=== PATIENT | female | born 1970 | race Caucasian/White ===

== ENCOUNTER → 2017-01-22 | Outpatient (CLI) | payer OTHER ==
[~2017-01-22] MED LIST: ASCO500T16 PO; ATV1 PO; FERREX PO; GABA-112 PO; LRT5 PO
[2017-01-22 12:20] LABS: BASO % 0.4 %; BASO ABS # 0.02 K/uL (0-0.2); COMPLETE YES; EOS % 1.1 %; HEMATOCRIT 42.4 % (37-47); IG% 0.2 %; LYMPH % 38.3 %; LYMPH ABS # 2.18 K/uL (1.2-3.4); MEAN CELL VOLUME 91.2 fL (80-100); MEAN CORPUSCULAR HEMOGLOBIN 31.8 pg (25-34); MEAN CORPUSCULAR HGB CONC 34.9 g/dl (32-36); MEAN PLATELET VOLUME 11.4 fL (7.4-10.4); MONO % 8.3 %; NEUT % 51.7 %; PLATELET COUNT 206 K/uL (130-400); RED BLOOD COUNT 4.65 M/uL (4.2-5.4); WHITE BLOOD COUNT 5.69 K/uL (4.8-10.8)
[2017-01-22 12:49] LABS: BLOOD UREA NITROGEN 7 mg/dl (7-18); BUN/CREATININE RATIO 9.4 (10-20); CARBON DIOXIDE 27 mmol/L (21-32); CHLORIDE 110 mmol/L (98-107); CREATININE 0.74 mg/dl (0.60-1.20); GLUCOSE 85 mg/dl (70-99); POTASSIUM 3.8 mmol/L (3.5-5.1); SODIUM 143 mmol/L (136-145)
[2017-01-22 12:57] LABS: FERRITIN 28.3 ng/ml (8.0-388.0)
== END | disposition home or self-care (01) ==
LOC: C.LABPBG 09:25
PROVIDERS: ATTEND Family Medicine
DX: D50.9 Iron deficiency anemia, unspecified (principal)

== ENCOUNTER → 2017-01-23 | Outpatient (CLI) | payer OTHER ==
[2017-01-23 12:55] LABS: BENZODIAZEPINE, URINE NEG (NEG); COCAINE,URINE NEG (NEG); PHENCYCLIDINE, URINE NEG (NEG)
== END | disposition home or self-care (01) ==
LOC: C.LABPBG 09:11
PROVIDERS: ATTEND Family Medicine
DX: Z51.81 Encounter for therapeutic drug level monitoring (principal); Z79.899 Other long term (current) drug therapy

== ENCOUNTER → 2017-02-13 | Outpatient (CLI) | payer OTHER ==
--- NOTE | 2017-02-13 14:35 | MAMMOGRAPHY REPORT ---
BILATERAL DIGITAL DIAGNOSTIC MAMMOGRAM TOMOSYNTHESIS WITH CAD AND TARGETED LEFT ULTRASOUND: 7 CLINICAL HISTORY: 46-year-old woman with a personal history of right breast cancer diagnosed in 2015 status post breast conservation therapy. She presents for bilateral screening mammography and also late to follow-up a sonographic finding in the 10:00 left breast. Based on a previous outside ultr asound report, there was a possible intramammary lymph node solid-appearing mass the 10:[address], 2 cm from the nipple with circumscribed borders. A short interval follow-up was recommended in January 2016. TECHNIQUE: Bilateral breast tomosynthesis in addition to standard 2D mammography was performed. Spo t magnification right CC and ML views were also obtained over the surgical site in the right breast. Current study was also evaluated with a Computer Aided Detection (CAD) system. COMPARISON: Comparison is made to exams dated: 02/09/2016 mammogram, 02/09/2016 mammogram, and 015 mammogram - [facility]. BREAST COMPOSITION: The tissue of both breasts is heterogeneously dense, which may obscure small ma sses. FINDINGS: A linear scar marker overlies the 11:00 through 1:00 axes of the right breast, denoting t he area of prior surgery. There is expected architectural distortion in the superior right breast. No new suspicious mass, unexpected architectural distortion or new microcalcifications are seen in the right breast. There is a stable coiled metallic biopsy marker in the upper outer anterior left breast. The biopsi ed mass appears decreased in size based on the left CC view. There is a 13 x 11 mm mass in the appr oximate 9:00 to 10:00 posterior left breast with associated calcification. Indistinct and partially obscured borders. Further characterization with ultrasound was performed. No other obvious mass, focal area of architectural distortion or microcalcifications are seen in the left breast. Targeted ultrasound was performed in the left 10:00 breast to reevaluate the probably benign mass de scribed on prior ultrasound report, for which follow-up is recommended. Additional scanning was per formed throughout the medial left breast and in the 2:00 left breast in the area of previously biops ied mass. In the 9:30 left breast, 4 cm from the nipple, there is an ill-defined hypoechoic mass wi th indistinct borders measuring approximately 7.8 x 5.9 x 5.0 mm. This may possibly be under measur ed, as it appears larger mammographically. This is thought to correlate with the mammographic mass with associated calcification and is suspicious. A skin BB was placed in the left breast 9:30 axis o verlying the sonographic abnormality and repeat mammography was performed. The repeat left CC and M LO tomosynthesis images demonstrate mammographicsonographic correlation of this mass and definitive characterization with ultrasound guided core biopsy is recommended. Ultrasound was also performed in the 10:00 left breast. There is an ovoid parallel circumscribed be nign anechoic simple cyst with posterior acoustic enhancement measuring 7.0 x 3.4 x 9.6 mm. A lobul ated circumscribed isoechoic to hypoechoic solid-appearing mass is seen in the 10:00 left breast, 2 cm from the nipple adjacent to the cyst, measuring 4.7 x 4.1 x 5.4 mm. This has not significantly c hanged in size comparing to the prior ultrasound at which time it measured 7.0 x 5.7 x 4.1 mm. An o farzana parallel circumscribed hypoechoic solid-appearing mass in the 2:00 left breast, 2 cm from the ni pple measures 6.2 x 3.6 x 6.5 mm. IMPRESSION: ACR BI-RADS CATEGORY 4B: INTERMEDIATE SUSPICION FOR MALIGNANCY, TARGETED ULTRASOUND ACR BI-RADS CATEGORY 4B: INTERMEDIATE SUSPICION FOR MALIGNANCY 1. There is a lobulated approximately 11 mm mass, with indistinct borders and associated calcificat ion, in the 9:00 posterior left breast mammographically, thought to correlate with an ill-defined hy poechoic mass in the 9:30 left breast on ultrasound. Definitive characterization with an ultrasound -guided core needle biopsy is recommended. 2. There is an indeterminate solid circumscribed subcentimeter mass in the 10:00 left breast, 2 cm from the nipple that does not appear significantly changed compared to the prior ultrasound and may be benign. However, given the solid nature, and personal history of right breast cancer, definitive characterization with ultrasound guided core biopsy is recommended at the time of biopsy in the 9:3 0 left breast. 3. Stable mammographic appearance of the right breast, without mammographic evidence of malignancy. These results and recommendations were discussed with the patient at the time of the exam. She tent atively schedule the left breast biopsies prior to leaving our department. Approximately 10% of breast cancers are not detected with mammography. A negative mammographic repor t should not delay biopsy if a clinically suggestive mass is present. Digna Tejeda M.D. ay/:02/13/2017 10:55:00 Home Energy Rater: Argenis KRAFT(Liliana)([place]age), [facility] letter sent: Abnormal 4/5 BI-RADS Code: ACR BI-RADS Category 4B: Intermediate Suspicion For Malignancy Ultrasound BI-RADS: AC R BI-RADS Category 4B: Intermediate Suspicion For Malignancy
== END | disposition home or self-care (01) ==
LOC: C.MAMM 09:33
PROVIDERS: ATTEND Internal Medicine Hematology & Oncology
DX: N63 Unspecified lump in breast (principal); N64.89 Other specified disorders of breast

== ENCOUNTER → 2017-02-21 | Outpatient (CLI) | payer OTHER ==
--- NOTE | 2017-02-21 08:41 | Discharge Instructions ---
Discharge Instructions Procedure Procedure Date: February 21, 2017. Reason for visit: Left Masses. Discharge Discharge Date: February 21, 2017. Discharge Diagnosis: status post breast biopsy Instructions Activity Recommendations: Additional Limitations (see below) Return to School/Work: no limitations Recommended Home Diet: No Limitations Provider Instructions: ACTIVITY RECOMMENDATIONS: * No lifting, pushing, pulling or exercising the affected side for three days. RETURN TO SCHOOL/WORK: * You may return to work/school after the procedure, but do not perform any strenuous activities for 24 to 48 hours. MEDICATIONS: * Tylenol (two 325 mg) every four to six hours if needed for mild pain (if not allergic to Tylenol). DIET: * Resume previous diet. SPECIAL CARE INSTRUCTIONS: * Keep biopsy site dry for 24 hours. May shower after 24 hours, but do not soak (bathe) incision. * May remove Tegaderm (plastic patch) tomorrow AFTER showering. * Leave the steri-strips on for one week. Allow the steri-strips to fall off by themselves. If not off after one week, you may remove them. You may place a Bandaid crosswise over the strips, if desired. * Apply ice 10 minutes on and 10 minutes off as needed. * Wear a bra at bedtime to sleep more comfortably for 2-3 days. * Your referring physician should have the results after approximately 5 to 7 business days. * Call for unusual bleeding, fever, drainage, etc or if you have any questions call during normal business hours or after hours call Dr Ferrell, . FOLLOW UP VISIT: Follow-up with Referring Physician as scheduled. Allergies Coded Allergies: No Known Allergies (Verified Allergy, Unknown, 10/25/05) Lobito Martinez Recommendations: Call your doctor if: * Temperature above 101 degrees * Pain not relieved by pain medicine ordered * There is increased drainage or redness from any incision * You have any unanswered questions or concerns. Your Doctors Instructions noted above were prepared by provider Leatha Ferrell. Patient Signature Section: Patient Instructions Signature Page Kyle Ford Patient (or Guardian) Signature/Date: I have read and understand the instructions given to me by my caregivers. Caregiver/RN/Doctor Signature/Date: The above-named patient and/or guardian has received patient instructions on this date. + Original Patient Signature Page (only) stays with chart. Please make copy for patient.
--- NOTE | 2017-02-21 13:19 | MAMMOGRAPHY REPORT ---
ULTRASOUND GUIDED BIOPSY LEFT BREAST: 02/21/2017 CLINICAL HISTORY: Left 9:30 breast mass. PATIENT CONSENT: The procedure, risks and benefits were discussed with the patient and informed writ ten consent was obtained. A timeout was performed immediately prior to the procedure. PROCEDURE DESCRIPTION: With ultrasound guidance, aseptic technique, and lidocaine as the local anest hetic (1% lidocaine to anesthetize the skin and 1% lidocaine with epinephrine to anesthetize the oren per tissues), the mass of concern in the left 9:30 breast (labelled "A" was sampled 4 times with a 1 4-gauge Achieve biopsy needle. Immediately thereafter, with ultrasound guidance, aseptic technique, and lidocaine as the local anesthetic, a metallic localizer clip was placed centrally in the mass. Direct pressure was applied to the site immediately post procedure and hemostasis was achieved. Po stprocedure unilateral mammograms were performed to confirm placement of the clip in the expected lo cation of the breast mass. The patient tolerated the procedure without complication. She was given wound care instructions. The specimens were sent to pathology for analysis. COMPARISON: Comparison is made to exams dated: 02/13/2017 ultrasound, 02/13/2017 mammogram - [facility], 02/09/2016 mammogram, 02/09/2016 mammogram, and [facility]. IMPRESSION: ULTRASOUND GUIDED BIOPSY Ultrasound guided core needle biopsy of the left 9:30 breast mass, with clip placement. The patient will receive pathology results from her referring provider. Leatha Ferrell M.D. /:02/21/2017 08:44:34 Custom Wood Stair Builder: Argenis YADAV)(Sage), [facility]
--- NOTE | 2017-02-21 13:19 | MAMMOGRAPHY REPORT ---
ASPIRATION LEFT BREAST: 02/21/2017 CLINICAL HISTORY: Left 10:00 breast mass. PATIENT CONSENT: The procedure and risks of ultrasound-guided biopsy/cyst aspiration were discussed in full with the patient. Both oral and written consents were obtained. PROCEDURE DESCRIPTION: With ultrasound guidance, aseptic technique, and 1% lidocaine as a local anes thetic (1% lidocaine to anesthetize the skin and 1% lidocaine with epinephrine to anesthetize the de eper tissues), the mass of concern in the left 10:00 breast was aspirated to completion. A small am ount of pink fluid was aspirated and sent to cytology for analysis. Direct pressure was applied to the site immediately post procedure and hemostasis was achieved. The patient tolerated the procedur e without complication. She was given wound care instructions. COMPARISON: Comparison is made to exams dated: 02/13/2017 mammogram - [facility], 02/09/2016 mammogram, 02/09/2016 mammogram, and 02/10/2015 mammogram - [facility]. IMPRESSION: ASPIRATION Successful ultrasound-guided aspiration of the left 10:00 breast mass. Given that it completely asp irated, it is consistent with a cyst. The aspirated fluid was sent to cytology for analysis. The p atient will receive cytology results from her referring provider. Leatha Ferrell M.D. /:02/21/2017 08:47:06 Lease Operator: Argenis YADAV)(Sage), [facility]
--- NOTE | 2017-02-21 13:19 | MAMMOGRAPHY REPORT ---
UNILATERAL LEFT DIGITAL DIAGNOSTIC MAMMOGRAM: 02/21/2017 CLINICAL HISTORY: Status post ultrasound-guided biopsy of a left 9:30 breast mass. Status post aspi ration of a left 10:00 breast cyst. TECHNIQUE: Postprocedural left CC and ML views were obtained. COMPARISON: Comparison is made to exams dated: 02/21/2017 ultrasound biopsy, 02/13/2017 ultrasound, mammogram - [facility], 02/09/2016 mammogram, 02/09/2016 mammogram, and 02/10 [facility] [place], operated by [facility]. BREAST COMPOSITION: The tissue of the left breast is heterogeneously dense, which may obscure small masses. FINDINGS: A new ribbon-shaped biopsy marker clip is seen at the site of the biopsied mass in the le ft 9:30 breast. No significant postbiopsy hematoma is seen. IMPRESSION: POST PROCEDURE IMAGING FOR MARKER PLACEMENT New biopsy marker clip status post ultrasound guided biopsy of a left 9:30 breast mass. Pathology r esults are pending. Approximately 10% of breast cancers are not detected with mammography. A negative mammographic repor t should not delay biopsy if a clinically suggestive mass is present. Leatha Ferrell M.D. ah/:02/21/2017 08:51:33 Chef & Owner: Argenis KRAFT(R)([place]age), [facility] BI-RADS Code: Post Procedure Imaging For Marker Placement
== END | disposition home or self-care (01) ==
LOC: C.MAMM 07:54
PROVIDERS: ATTEND Internal Medicine Hematology & Oncology
DX: N63 Unspecified lump in breast (principal); D24.2 Benign neoplasm of left breast

== ENCOUNTER → 2018-01-14 | Outpatient (CLI) | payer OTHER ==
[2018-01-14 13:13] LABS: BASO % 0.3 %; BASO ABS # 0.02 K/uL (0-0.2); EOS % 1.4 %; EOS ABS # 0.08 K/uL (0-0.5); HEMATOCRIT 43.6 % (37-47); HEMOGLOBIN 15.1 g/dL (12.0-16.0); IG# 0.02 K/uL (0.00-0.02); LYMPH % 39.4 %; MEAN CORPUSCULAR HEMOGLOBIN 32.2 pg (25-34); MEAN CORPUSCULAR HGB CONC 34.6 g/dl (32-36); MEAN PLATELET VOLUME 10.6 fL (7.4-10.4); MONO % 6.7 %; MONO ABS # 0.39 K/uL (0.11-0.59); NEUT % 51.9 %; NEUT ABS # 3.03 K/uL (1.4-6.5); PLATELET COUNT 229 K/uL (130-400); RED CELL DISTRIBUTION WIDTH CV 13.3 % (11.5-14.5); RED CELL DISTRIBUTION WIDTH SD 44.9 fL (36.4-46.3); WHITE BLOOD COUNT 5.84 K/uL (4.8-10.8)
[2018-01-14 14:17] LABS: ALT/SGPT 15 U/L (12-78); BLOOD UREA NITROGEN 9 mg/dl (7-18); CALCIUM 9.1 mg/dl (8.5-10.1); CARBON DIOXIDE 27 mmol/L (21-32); CREATININE 0.78 mg/dl (0.60-1.20); GLUCOSE 82 mg/dl (70-99); POTASSIUM 3.7 mmol/L (3.5-5.1); SODIUM 140 mmol/L (136-145)
[2018-01-14 14:20] LABS: ALKALINE PHOSPHATASE 73 U/L (45-117); AST/SGOT 12 U/L (15-37); TOTAL PROTEIN 7.3 gm/dl (6.4-8.2)
== END | disposition home or self-care (01) ==
LOC: C.LABPBG 09:09
PROVIDERS: ATTEND Internal Medicine Hematology & Oncology
DX: D05.90 Unspecified type of carcinoma in situ of unspecified breast (principal); Z13.220 Encounter for screening for lipoid disorders; M54.9 Dorsalgia, unspecified; M96.1 Postlaminectomy syndrome, not elsewhere classified; D50.9 Iron deficiency anemia, unspecified